=== PATIENT | male | born 1965 | race Two or more races ===

== ENCOUNTER 2024-02-07 10:41 | Emergency (ER) | payer BC ==
[~2024-02-07] VITALS: Ht 165.1 cm; Wt 61.4 kg
[2024-02-07] MEDS ORDERED: ATOR1TAB21 PO (10:51)
[2024-02-07] MEDS ORDERED: ECOT81TA5 PO (10:51)
[2024-02-07 11:33] LABS: BASO # 0.1 10^3/uL (0.0-0.2); BASO % 0.7 % (0.0-1.0); EOS # 0.4 10^3/uL (0.0-0.5); EOS % 3.4 % (0.0-3.0); HEMATOCRIT 48.9 % (42.0-52.0); LYMPH # 2.1 10^3/uL (1.5-5.0); LYMPH % 20.1 % (24.0-44.0); MEAN CORPUSCULAR HEMOGLOBIN 27.5 pg (27.0-33.0); MEAN CORPUSCULAR HGB CONC 32.7 g/dl (32.0-36.5); MEAN CORPUSCULAR VOLUME 84.2 fl (80.0-96.0); MONO # 0.6 10^3/uL (0.0-0.8); MONO % 5.6 % (2.0-8.0); NEUTROPHILS # 7.2 10^3/uL (1.5-8.5); NEUTROPHILS % 69.6 % (36.0-66.0); PLATELET COUNT, AUTOMATED 571 10^3/uL (150-450); RED BLOOD COUNT 5.81 10^6/uL (4.30-6.10); WHITE BLOOD COUNT 10.3 10^3/uL (4.0-10.0)
[2024-02-07 11:45] LABS: INR 1.12; PROTHROMBIN TIME 14.1 SECONDS (12.5-14.5)
[2024-02-07 12:03] LABS: LIPASE 52 U/L (12-53)
[2024-02-07 12:05] LABS: ALBUMIN 4.1 G/DL (3.2-5.2); ALKALINE PHOSPHATASE 100 U/L (46-116); ALT/SGPT 58 U/L (7.0-40); AST/SGOT 35 U/L (<34); BILIRUBIN,DIRECT 0.3 MG/DL (<0.4); BLOOD UREA NITROGEN 16 MG/DL (9-23); CALCIUM LEVEL 9.4 MG/DL (8.5-10.1); CARBON DIOXIDE LEVEL 31 MMOL/L (20-31); CHLORIDE LEVEL 108 MMOL/L (98-107); CK-MB VALUE MASS 2.2 NG/ML (<3.6); CREATININE FOR GFR 0.86 MG/DL (0.70-1.30); GLOMERULAR FILTRATION RATE > 60.0 (>56); GLUCOSE, FASTING 100 MG/DL (60-100); POTASSIUM SERUM 5.1 MMOL/L (3.5-5.1); SODIUM LEVEL 140 MMOL/L (136-145)
[2024-02-07 12:08] LABS: THYROID STIMULATING HORMONE 2.953 uIU/ML (0.55-4.78)
[2024-02-07 12:09] LABS: FREE T4 1.27 NG/DL (0.89-1.76)
[2024-02-07 12:10] LABS: CPK CREATINE PHOSPHOKINASE 135 U/L (46-171); MB/CK RELATIVE INDEX 1.62 (< OR =4)
[2024-02-07 13:09] LABS: CK-MB VALUE MASS 2.3 NG/ML (<3.6)
[2024-02-07 13:12] LABS: MB/CK RELATIVE INDEX 2.09 (< OR =4)
[2024-02-07 14:29] VITALS: BP 129/75; TEMP 96.6; O2SAT 98
== END 2024-02-07 14:33 | disposition home or self-care (01) ==
LOC: M ED 10:41
DX: R55 Syncope and collapse (principal); E78.5 Hyperlipidemia, unspecified; Z79.82 Long term (current) use of aspirin; Z79.02 Long term (current) use of antithrombotics/antiplatelets